=== PATIENT | male | born 1975 | race Caucasian/White ===

== ENCOUNTER → 2016-06-26 | Outpatient (CLI) | payer BC ==
--- NOTE | 2016-06-26 10:10 | DIAGNOSTIC IMAGING REPORT ---
LEFT KNEE 3 VIEWS CLINICAL HISTORY: Left knee pain following fall. COMPARISON: None FINDINGS: Alignment of the left knee is anatomic. No acute fracture is identified. Spurring of the tibial tubercle at the insertion of the patellar tendon is chronic. There is a suspected small left knee joint effusion. IMPRESSION: 1. No acute fracture. 2. Suspected small left knee joint effusion. 3. Preserved joint spaces of the left knee. Electronically signed by: Guero Viera M.D. 06/26/2016 10:08 AM Dictated Date/Time: 06/26/2016 10:07 AM
== END | disposition home or self-care (01) ==
LOC: C.RAD1850 09:14
PROVIDERS: ATTEND Family Medicine
DX: M25.562 Pain in left knee (principal)

== ENCOUNTER → 2016-07-13 | Outpatient (CLI) | payer BC ==
--- NOTE | 2016-07-13 14:28 | DIAGNOSTIC IMAGING REPORT ---
MRI OF THE LEFT KNEE WITHOUT CONTRAST CLINICAL HISTORY: Left knee pain following fall with twisting injury. COMPARISON STUDY: Left knee radiographs June 26, 2016. TECHNIQUE: Utilizing a 1.5 Lizett magnet and dedicated coil, multiplanar, multiecho imaging of the left knee was performed without intravenous or intraarticular contrast. FINDINGS: Alignment of the left knee is anatomic. There is no joint effusion. Note is made of moderate edema within the lateral tibial plateau. Note is made of transverse linear hypointense signal within the mid to anterior aspect of the lateral tibial plateau consistent with a nondisplaced, nondepressed fracture of the lateral tibial plateau. No additional fractures are present. The cruciate and collateral ligaments are intact. No meniscal tear is identified. Cartilage appears intact. Note is made of a 3.6 x 2.1 cm T2 hyperintense, T1 hypointense lesion within the lateral metaphysis of the distal left femur. In retrospect, this corresponds to a sclerotic lesion shown on radiographs of June 26, 2016. There is no associated soft tissue mass. No additional osseous lesions are present. IMPRESSION: 1. Acute nondisplaced, nondepressed lateral tibial plateau fracture with moderate associated marrow edema. 2. 3.6 x 2.1 cm osseous lesion within the lateral metaphysis of the distal left femur. This corresponds to a subtle lesion on radiographs of June 26, 2016. In retrospect, this lesion is present. This lesion is indeterminate although likely benign. Follow-up left knee radiographs in 6 months are recommended. 3. No meniscal tear. 4. Intact cruciate and collateral ligaments. Electronically signed by: Guero Viera M.D. 07/13/2016 2:27 PM Dictated Date/Time: 07/13/2016 2:16 PM
== END | disposition home or self-care (01) ==
LOC: C.MRI 13:15
PROVIDERS: ATTEND Physical Medicine & Rehabilitation Sports Medicine
DX: M25.562 Pain in left knee (principal); S82.145A Nondisplaced bicondylar fracture of left tibia, initial encounter for closed fracture; R60.0 Localized edema; M89.8X5 Other specified disorders of bone, thigh

== ENCOUNTER → 2016-08-18 | Outpatient (CLI) | payer BC | END | disposition home or self-care (01) | LOC: C.RDSM 14:45 | PROVIDERS: ATTEND Orthopaedic Surgery Sports Medicine | DX: Z09 Encounter for follow-up examination after completed treatment for conditions other than malignant neoplasm (principal) ==

== ENCOUNTER → 2016-12-15 | Outpatient (CLI) | payer BC | END | disposition home or self-care (01) | LOC: C.RDSM 15:00 | PROVIDERS: ATTEND Orthopaedic Surgery Sports Medicine | DX: S82.145D Nondisplaced bicondylar fracture of left tibia, subsequent encounter for closed fracture with routine healing (principal); X58.XXXD Exposure to other specified factors, subsequent encounter ==

== ENCOUNTER → 2017-12-21 | Outpatient (CLI) | payer BC, OTHER | END | disposition home or self-care (01) | LOC: C.RDSM 14:13 | PROVIDERS: ATTEND Orthopaedic Surgery Sports Medicine | DX: Z96.652 Presence of left artificial knee joint (principal) ==